=== PATIENT | male | born 1985 | race Hispanic/Latino ===

== ENCOUNTER 2017-01-16 10:35 | Day surgery (SDC) | payer OTHER ==
[~2017-01-16] VITALS: Ht 180.3 cm; Wt 93.0 kg
[~2017-01-16 10:35] MED LIST: MULTTAB50 PO
[2017-01-16] MEDS ORDERED: LR 1,000 ML IV ONE (11:00)
[2017-01-16] MEDS ORDERED: PROPOFOL 200 MG/20 ML VIAL As Ordered ONE (11:03)
[2017-01-16] MEDS ORDERED: LIDOCAINE 2% INJ 100 MG/5 ML SDV (FOR ANES.) As Ordered ONE (11:03)
[2017-01-16] MEDS ORDERED: ROCURONIUM BROMIDE 50 MG/5 ML VIAL As Ordered ONE ×2 (11:03→12:59)
[2017-01-16] MEDS ORDERED: fentaNYL 250 MCG/5 ML INJECTION (J3010) As Ordered ONE (11:03)
[2017-01-16] MEDS ORDERED: MIDAZOLAM INJ 2 MG/2 ML VIAL (J2250) As Ordered ONE (11:03)
[2017-01-16] MEDS ORDERED: PERCOCET PO (11:35)
[2017-01-16] MEDS ORDERED: METHYLENE BLUE 0.5% (5MG/ML) 10 ML AMP (PROVAYBLUE)(Q9968 PER 1MG) As Ordered ONE (11:55)
[2017-01-16] MEDS ORDERED: OXYMETAZOLINE NASAL SPRAY (AFRIN) As Ordered ONE ×2 (11:55→12:58)
[2017-01-16] MEDS ORDERED: LIDOCAINE W/EPINEPHRINE 1% 20ML VIAL As Ordered ONE (11:55)
[2017-01-16] MEDS ORDERED: dexameTHASONE 4 MG/ML 1ML VIAL (J1100) As Ordered ONE (12:59)
[2017-01-16] MEDS ORDERED: ONDANSETRON 4MG/2ML VIAL (J2405) As Ordered ONE (12:59)
[2017-01-16] MEDS ORDERED: NEOSTIGMINE 10 MG/10 ML VIAL (J2710) As Ordered ONE (13:16)
[2017-01-16] MEDS ORDERED: GLYCOPYRROLATE INJ 0.2 MG/ML 2 ML VIAL As Ordered ONE ×2 (13:16→13:17)
[2017-01-16] MEDS ORDERED: PERCOCET 5MG/325MG TAB PO PRN ×2 (14:15→14:30)
[2017-01-16] MEDS ORDERED: ONDANSETRON 4MG/2ML VIAL (J2405) IV PRN (14:15)
[2017-01-16] MEDS ORDERED: fentaNYL 100 MCG/2 ML INJECTION (J3010) IV PRN (14:15)
[2017-01-16] MEDS ORDERED: LR 1,000 ML IV SCH (14:15)
[2017-01-16] MEDS ORDERED: IBUPROFEN 800 MG TAB PO PRN (14:30)
[2017-01-16 15:00] VITALS: BP 129/85
== END 2017-01-16 15:11 | disposition home or self-care (01) ==
LOC: M SDC 10:35
PROVIDERS: ATTEND Specialist
DX: J34.2 Deviated nasal septum (principal); J31.0 Chronic rhinitis
CPT/HCPCS: 30140; 30520; 88300; J1100; J2250; J2405; J2710; J3010; Q9968